=== PATIENT | female | born 1985 | race Hispanic/Latino ===

== ENCOUNTER 2016-07-23 14:51 | Emergency (ER) | payer SELFPAY ==
[~2016-07-23 14:51] MED LIST: ASCO500T8 PO; Docusate Sodium PO; FERR-74 PO; Ibuprofen PO
[2016-07-23 15:10] VITALS: BP 109/50; PULSE 91; RESP 18; O2SAT 99
[2016-07-23 16:04] LABS: APPEARANCE,URINE CLEAR (CLEAR,HAZY); COLOR,URINE YELLOW (YELLOW); OCCULT BLOOD,URINE MODERATE (NEGATIVE); PH,URINE 5.5 (5.0-8.0)
--- NOTE | 2016-07-23 16:08 | ED.REPORT ---
HPI-Abd Pain F Under 40 Date of Service July 23, 2016 ED Provider: The patient is a 31 year old female who presents to the emergency department complaining of lower abdominal pain that began last night. She describes the pain as "burning." The pain has waxed and waned since onset. At this time her pain is currently at a 7-8/10. Her pain is most severe around her umbilicus. She has also experienced a fever, chills, decreased appetite, and dysuria. She took Tylenol with some relief. Her last bowel movement was this morning at 0600 , this did not improve her symptoms. She denies nausea, vomiting, diarrhea, chest pain, back pain or headache. She does not take any medications regularly. Nursing Notes Stated Complaint: STOMACH ACHE Chief Complaint: Female Abdominal Pain Nursing Notes Reviewed: Yes Allergies: Coded Allergies: No Known Allergies (Verified , 07/23/16) Scheduled ([Docusate Sodium]) 100 MG CAPSULE 100 MG PO BID Ascorbic Acid (Vitamin C) 500 Mg Tablet 500 MG PO BIDWM Ferrous Sulfate (Feosol) 325 Mg Tablet 325 MG PO BIDWM Scheduled PRN ([Ibuprofen]) 600 MG TABLET 600 MG PO Q6H PRN PRN For Mild Pain General Time Seen by MD: 16:08 Chief Complaint Abdominal pain Hx Obtained From: Patient Arrived By: Walk-in Sudden in Onset?: Yes Onset Occurred: Yesterday Symptom Duration: Since onset Progression since Onset: Constant, Gradually worsening Location: : Abdomen lower Quality: Painful Severity: Current: Moderate Severity: Maximum: Moderate Recent Healthcare: No recent doctor visit, No recent hospitalization Similar Sx Previous: No Past Medical History Past Medical History None Past Surgical History No previous abdominal surgeries Family History Noncontributory Smoking History Never Smoker Social History Alcohol Use: Denies alcohol use Drug Use: Denies drug use Other Social History: Lives with children, Local resident Ambulatory Status Independent Review of Systems Review of Systems Note: +decreased appetite Constitutional: Reports: Chills, Fever Cardiovascular: Denies: Chest pain GI: Reports: Abdominal pain, Denies: Diarrhea, Nausea, Vomiting Female: Reports: Dysuria Musculoskeletal: Denies: Back pain Complete sys rev & neg: except as marked. Neurologic: Denies: Headache Physical Exam Initial Vital Signs Vital Signs (First) Date Time Temp Pulse Resp B/P Pulse Ox O2 Delivery O2 Flow Rate FiO2 07/23/16 15:10 37.6 91 18 109/50 99 Room Air Initial VS: Reviewed, Vital signs normal Head / Eyes: Atraumatic, Normocephalic, PERRL ENT: Mucous membranes moist, Conjunctiva normal, No scleral icterus Neck: Supple, Non-tender, Full range of motion Lymphatic: No lymphadenopathy Extremities: Vascular intact, Neuro intact, No swelling, No tenderness Skin: Warm, Dry, No cyanosis Neurologic: Alert, Oriented, Nonfocal Psychiatric: Mood/affect normal, Behavior normal, Normal thought content General/Constitutional: Awake, Alert, Cooperative Respiratory / Chest: Atraumatic, Breath sounds NL, Breath sounds = bilat, No respiratory distress, No rales, No rhonchi, No wheezing Cardiovascular: Heart rate NL, Regular rhythm, Heart sounds NL, No gallop, No murmurs, No rubs, Peripheral circulation NL Abdomen: Soft, No guarding, No rebound, No hernia, No palpable mass, No pulsatile mass Generalized abdominal pain worse in the periumbilical region. Her abdomen is slightly distended. Decreased bowel sounds. No groin masses. Back: Inspection NL, Non-tender, No CVA tenderness Interpretation & Diagnostics Interpretation & Diagnostics: Urine : negative Lab Results Interpretation Result Diagram: 07/23/16 1630 07/23/16 1630 Test 07/23/16 15:20 07/23/16 16:30 Urine Color Yellow (YELLOW) Urine Appearance Clear (CLEAR,HAZY) Urine pH 5.5 (5.0-8.0) Urine Specific [place] 1.025 (1.003-1.035) Urine Protein Negativemg/dL (NEG,TRACE) Urine Glucose (UA) Negativemg/dL (NEGATIVE) Urine Ketones Negativemg/dL (NEGATIVE) Urine Occult Blood Moderate (NEGATIVE) Urine Nitrite Negative (NEGATIVE) Urine Bilirubin Negative (NEGATIVE) Urine Urobilinogen 2.0mg/dL (NORMAL) Urine Leukocyte Esterase Small (NEGATIVE) Urine RBC 0-2/hpf (0-2) Urine WBC 0-5/hpf (0-5) Urine Epithelial Cells Many/hpf (NONE-MOD) Urine Crystals None seen (NONE SEEN) Urine Bacteria Few/hpf (NONE-FEW) Urine Hyaline Casts None/lpf (NONE) Urine Granular Casts None seen (NONE SEEN) Urine Waxy Casts None seen (NONE SEEN) Urine Red Blood Cell Casts None seen (NONE SEEN) Urine White Blood Cell Casts None seen (NONE SEEN) Urine Mucus None seen (None Seen) Urine Trichomonas None seen (NONE SEEN) Urine Yeast None (NONE SEEN) Urinalysis Comment None Urine Culture Reflexed Indicated White Blood Count 13.2th/mm3 (3.8-10.1) Red Blood Count 4.17mil/mm3 (3.90-5.20) Hemoglobin 12.4g/dL (12.0-15.6) Hematocrit 37.4% (35.0-46.0) Mean Corpuscular Volume 89.7fL (81-100) Mean Corpuscular Hemoglobin 29.7pg (27.0-35.0) Mean Corpuscular Hemoglobin Concent 33.2% (32.0-37.0) Red Cell Distribution Width 12.7% (12.3-15.4) Platelet Count 212bil/L (150-400) Neutrophils (%) (Auto) 89.4% (40-74) Lymphocytes (%) (Auto) 6.1% (14-46) Monocytes (%) (Auto) 3.7% (4-12) Eosinophils (%) (Auto) 0.5% (0-5) Basophils (%) (Auto) 0.1% (0-3) Sodium Level 137mEq/L (134-144) Potassium Level 3.8mEq/L (3.5-5.2) Chloride Level 102mEq/L (97-108) Carbon Dioxide Level 20mmol/L (18-29) Blood Urea Nitrogen 11mg/dL (6-20) Creatinine 0.39mg/dL (0.57-1.00) Estimat Glomerular Filtration Rate 275mL/min (>59) Glucose Level 104mg/dL (60-99) Calcium Level 9.1mg/dL (8.5-10.1) Magnesium Level 1.8mg/dL (1.6-2.6) Total Bilirubin 1.0mg/dL (0.0-1.2) Aspartate Amino Transf (AST/SGOT) 20U/L (0-50) Alanine Aminotransferase (ALT/SGPT) 23U/L (0-32) Alkaline Phosphatase 68U/L (25-150) Total Protein 7.0g/dL (6.4-8.4) Albumin 3.9g/dL (3.4-5.0) Lipase 15U/L (13-60) HCG Beta Subunit < 0.500mIU/mL Hold [place] Top Tube Received (Received) X-Ray Chest Interpretation Chest Xray Interpretation: IMPRESSION: 1. No definite intra-abdominal radiographic abnormality. Dictated by: Arash Shepard M.D. on 07/23/2016 at 16:58 Interpretation / Wet Read by: Interpret - Radiologist CT Abd / Pelvis Interpretation IMPRESSION: 1. No evidence of appendicitis. 2. Hyperemia of the uterus with prominent parametrial vessels. The finding is nonspecific and may reflect physiologic changes but the differential also includes pelvic congestion syndrome. 3. Small involuting corpus luteal cyst in the left ovary. Dictated by: Arash Shepard M.D. on 07/23/2016 at 18:32 Interpretation / Wet Read by: Interpret - Radiologist Re-Eval/Medical Decision Med Decision/Clinical Course The patient presents with periumbilical pain, is concern for early appendicitis. A CT was obtained given her elevated white count it seems to be enough inflammation to see an abnormal appendix, her CT showed a normal appendix however she had pelvic congestion syndrome. This may be nice to her symptoms given her pain is quite high for that. Tibial and a course of gastroenteritis. Partial list of differential diagnoses considered were obstruction, pyelonephritis, cystitis, PID, diverticulitis, and appendicitis. Source of Hx: Old records Re-Evaluation/Progress : Time of Eval: 19:00 Re-Evaluation/Progress Note: Discussed results, diagnosis, and plan for discharge. All questions were addressed. Counseled Regarding: Diagnosis, Lab results, Need for follow-up, When/why to return to ED Discharge & Departure Primary Impression: Pelvic congestion syndrome Additional Impression: Periumbilical abdominal pain Disposition: Home Discharge Condition All VS Reviewed: Yes Condition: Stable Patient Instructions: Acute Abdominal Pain (ED) Additional Instructions: Thank you for entrusting us with your care today. Your CT scan shows evidence of pelvic congestion syndrome which may or may not be causing your pain. You will need to followup with a time study engineer to further evaluate this. We have given you a referral to Dr. Arndt. Call the office on Sunday to schedule an appointment. In regards to your belly button pain this could be a sign of an early appendicitis. At this point your appendix looks normal. If your pain gets worse or if it moves to the RLQ you need to be re-evaluated. Seek care sooner for any other new or concerning symptoms. Samina por confiarnos sandoval cuidado hoy. Sandoval tomografa computarizada muestra evidencia de sndrome de congestin plvica que puede o no estar causando sandoval dolor. Usted tendr que seguir con un gineclogo para evaluar esto. Le hemos dado tatum referencia al Dr. Arndt. Llame a la oficina el lunes para programar tatum karlo. En lo que respecta a sandoval dolor en el ombligo, esto podra ser un signo de tatum apendicitis temprana. En earl punto sandoval apndice se ve normal. Si sandoval dolor empeora o si se mueve al RLQ necesita ser reevaluado. Busque atencin antes para cualquier otro sntoma nuevo o relacionado. Referrals: [facility] (PCP) Anant Arndt MD Attestation Portions of this note were transcribed by Supriya Ramirez. I, Dr. Powell personally performed the history, physical exam and medical decision-making; I reviewed and confirmed the accuracy of the information in the transcribed note. Signed by: Nava Lyle, 07/23/2016 at 1910. copies to: Anant Arndt MD, Jena M MD July 23, 2016 16:08 Supriya Ramirez July 23, 2016 16:18
[2016-07-23] MEDS ORDERED: Iohexol 300 mg/mL 30 mL Inj PO ONE (16:25)
[2016-07-23] MEDS ORDERED: Ondansetron 2 mg/mL 2 mL Inj IVPUSH PRN (16:25)
[2016-07-23] MEDS ORDERED: HYDROmorphone 0.5 mg/0.5 mL iSecure Syringe IVPUSH PRN (16:25)
[2016-07-23] MEDS ORDERED: 0.9% Sodium Chloride 1,000 ML IV ONE (16:25)
[2016-07-23 17:06] LABS: BASOPHILS % (AUTO) 0.1 % (0-3); EOSINOPHILS % (AUTO) 0.5 % (0-5); MONOCYTES % (AUTO) 3.7 % (4-12); Mean Corpuscular Hemoglobin 29.7 pg (27.0-35.0); Mean Corpuscular Volume 89.7 fL (81-100); NEUTROPHILS % (AUTO) 89.4 % (40-74); Platelet Count 212 bil/L (150-400)
--- NOTE | 2016-07-23 17:07 | DRSVH ---
PROCEDURE: X-RAY ACUTE ABDOMINAL SERIES ([id number]) INDICATIONS: periumbilical pain TECHNIQUE: One view chest and two views of the abdomen were acquired. COMPARISON: None. FINDINGS: Surgical changes and devices: None. Chest: Lungs are clear. Heart size is normal. No pleural effusions. No pneumoperitoneum. Abdomen: Bowel gas pattern appears within normal limits. No definite radiopaque renal stones. Eval uation limited due to colonic stool. Bones: No suspicious bony lesions. IMPRESSION: 1. No definite intra-abdominal radiographic abnormality. Dictated by: Arash Shepard M.D. on 07/23/2016 at 16:58 Approved by: Arash Shepard M.D. on 07/23/2016 at 17:00
[2016-07-23 17:28] LABS: Lipase 15 U/L (13-60)
[2016-07-23 17:34] LABS: Magnesium 1.8 mg/dL (1.6-2.6)
--- NOTE | 2016-07-23 18:44 | DRSVH ---
PROCEDURE: CT ABDOMEN AND PELVIS WITH CONTRAST ([id number]) INDICATIONS: Periumbilical pain TECHNIQUE: After the administration of oral and intravenous contrast, 5 mm thick sections acquired from the diap hragms to the symphysis. 5 mm thick coronal and sagittal reformats were performed. For radiation do se reduction, the following was used: automated exposure control, adjustment of mA and/or kV accordi ng to patient size. COMPARISON: None. FINDINGS: Image quality: Excellent. ABDOMEN: Lung bases: There is dependent atelectasis bilaterally. Heart size is normal. Solid organs: Liver and spleen are normal in size and enhancement. Gallbladder appears within marcos l limits without calcified gallstones. Biliary system is non-dilated. Pancreas enhances normally. No adrenal nodules. Kidneys are normal in size and enhancement, without hydronephrosis. Peritoneum and bowel: Stomach, small bowel, and colon loops are normal in caliber and wall thickness . The appendix is normal in appearance. No free fluid or air. Nodes and vessels: No retroperitoneal or mesenteric adenopathy. Aorta and inferior vena cava are no rmal in caliber. Miscellaneous: No ventral hernias. PELVIS: Genitourinary: Bladder wall thickness is normal. The uterus is hyperemic in appearance with a small amount of endometrial fluid. There is prominence of the parametrial vessels bilaterally. A smaller crenulated peripherally enhancing cyst is demonstrated in the left ovary measuring up to 1.3 cm like ly representing an involuting corpus luteal cyst. Miscellaneous: No inguinal hernias or adenopathy. Bones: No suspicious bony lesions. No vertebral body compression fractures. IMPRESSION: 1. No evidence of appendicitis. 2. Hyperemia of the uterus with prominent parametrial vessels. The finding is nonspecific and may r eflect physiologic changes but the differential also includes pelvic congestion syndrome. 3. Small involuting corpus luteal cyst in the left ovary. Dictated by: Arash Shepard M.D. on 07/23/2016 at 18:32 Approved by: Arash Shepard M.D. on 07/23/2016 at 18:38
[2016-07-23 19:23] VITALS: BP 116/78; PULSE 113; RESP 20; O2SAT 98
[2016-07-23] MEDS ORDERED: Ketorolac 15 mg/mL Inj IVPUSH ONE (19:30)
[2016-07-23 19:32] VITALS: BP 116/68; PULSE 110; RESP 20; O2SAT 98
== END 2016-07-23 19:33 | disposition home or self-care (01) ==
LOC: SED 14:51
DX: N94.89 Other specified conditions associated with female genital organs and menstrual cycle (principal)
CPT/HCPCS: 36415; 74022; 74177; 80053; 81000; 81025; 83690; 83735; 84702; 85025; 87086; 87088; 96374; 96375; 99285; J1170; J1885; J2405; J7030; Q9967